=== PATIENT | female | born 2000 | race Caucasian/White ===

== ENCOUNTER 2021-10-24 18:39 | Emergency (ER) | payer OTHER ==
[2021-10-24 18:50] VITALS: BP 138/76; PULSE 105; TEMP 98.6; BMI 34.7
== END 2021-10-24 21:06 | disposition home or self-care (01) ==
LOC: JER 18:39 → JERFT 18:39
DX: N76.89 Other specified inflammation of vagina and vulva (principal)
CPT/HCPCS: 99281-25

== ENCOUNTER 2022-06-03 13:21 | Emergency (ER) | payer OTHER ==
[2022-06-03 13:45] VITALS: BP 131/90; PULSE 94; RESP 18; TEMP 98.4; BMI 36.2
[2022-06-03 17:24] LABS: BASO % 0.6 % (0-2.0); EOS % 0.2 % (0-4.5); HEMATOCRIT 39.5 % (32.4-45.2); HEMOGLOBIN 12.9 GM/dL (10.7-15.3); LYMPH % 24.1 % (8-40); MCH 25.8 pg (25.7-33.7); MCHC 32.5 g/dl (32.0-36.0); MEAN CELL VOLUME 79.3 fl (80-96); MEAN PLT VOLUME 8.9 fl (7.5-11.1); NEUT % 66.1 % (42.8-82.8); PLATELET COUNT 233 10^3/uL (134-434); RBC 4.99 M/mm3 (3.60-5.2); RDW 13.4 % (11.6-15.6); WHITE BLOOD COUNT 5.6 K/mm3 (4.0-10.0)
[2022-06-03 17:30] LABS: PH,URINE 5.5 (5.0-8.0); URINE APPEARANCE CLOUDY; URINE BILIRUBIN NEGATIVE (NEGATIVE); URINE COLOR YELLOW; URINE GLUCOSE (UA) NEGATIVE (NEGATIVE); URINE KETONE 2+ (NEGATIVE); URINE LEUK ESTERASE NEGATIVE (NEGATIVE); URINE NITRITE NEGATIVE (NEGATIVE); URINE PROTEIN NEGATIVE (NEGATIVE); URINE UROBILINOGEN 0.2 mg/dL (0.2-1.0)
[2022-06-03 17:33] LABS: HCG,QUALITATIVE URINE Negative
[2022-06-03 17:33] LABS: CHLORIDE 106 mmol/L (98-107); SODIUM 141 mmol/L (136-145)
[2022-06-03 17:35] LABS: CALCIUM 9.1 mg/dL (8.5-10.1)
[2022-06-03 17:36] LABS: ALBUMIN 4.1 g/dl (3.4-5.0); ANION GAP 10 MMOL/L (8-16); BLOOD UREA NITROGEN 9.9 mg/dL (7-18); CO2 25 mmol/L (21-32); GLUCOSE,RANDOM 75 mg/dL (74-106)
[2022-06-03 17:39] LABS: CREATININE 0.6 mg/dL (0.55-1.3); SGOT/AST 41 U/L (15-37); SGPT/ALT 44 U/L (13-61)
[2022-06-03 17:40] LABS: BILIRUBIN,TOTAL 0.2 mg/dL (0.2-1); TOT PROT 7.5 g/dl (6.4-8.2)
[2022-06-03 17:42] LABS: ALK PHOS 81 U/L (45-117)
== END 2022-06-03 18:47 | disposition home or self-care (01) ==
LOC: JER 13:21
DX: U07.1 COVID-19 (principal)
CPT/HCPCS: 0241U-QW; 36415; 80053; 81003; 84484; 84703; 85025; 87086; 93005; 93010; 99284-25